=== PATIENT | male | born 1945 | race Hispanic/Latino ===

== ENCOUNTER 2018-05-06 05:33 | Inpatient (IN) | payer MEDICARE, OTHER ==
--- NOTE | 2018-05-06 05:53 | ED PDOC ---
Arrival/HPI - History of Present Illness Narrative History of Present Illness (Text): PMH: hypertension, IDDM, TEZ, metabolic syndrome, CKD, left lower extremity DVT (2010), recently diagnosed with A-Fib (on Eliquis twice a day), prostate CA treated with radiation therapy PSH: none Meds: as per SEP Allx: NKDA <Wilmar Pollack - Last Filed: 05/06/18 06:17> - General Historian: Patient, Spouse - Critical Care Critical Care Minutes: Other (40 minutes) - History of Present Illness Narrative History of Present Illness (Text): 05/06/18 05:40 72 year old male, whose past medical history includes hypertension, IDDM, TEZ, metabolic syndrome, CKD, left lower extremity DVT (2010) and recently diagnosed with A-Fib (on Eliquis twice a day), presents to the emergency department accompanied by complaining of chest pain that began approximately 2 hours ago. The chest pain began after patient woke up and went to the bathroom. Patient describes the pain as a dull midsternal sensation, but non-radiating. As per patient's , patient had a recent stress test [address] Iglesias which was reportedly normal. He also reports having shortness of breath yesterday, but does not have any today. Patient denies any fever, chills, shortness of breath currently, nausea, vomiting, diarrhea, back pain, neck pain, headache, dizziness, or any other complaints. PMD: Dr. Dee Cooling Pipe Inspector: Dr. Iglesias Time/Duration: Other (2 hours) Symptom Onset: Sudden Symptom Course: Unchanged Activities at Onset: Light Context: Home <Jose Guadalupe Arguello - Last Filed: 05/06/18 06:29> - General Time Seen by Provider: 05/06/18 05:35 Past Medical History - Provider Review Nursing Documentation Reviewed: Yes <Jose Guadalupe Arguello - Last Filed: 05/06/18 06:29> Family/Social History - Physician Review Nursing Documentation Reviewed: Yes Family/Social History: No Known Family HX <Jose Guadalupe Arguello - Last Filed: 05/06/18 06:29> Allergies/Home Meds <Wilmar Pollack - Last Filed: 05/06/18 06:17> <Vic Arguelloyl - Last Filed: 05/06/18 06:29> Allergies/Adverse Reactions: Allergies No Known Allergies Allergy (Verified 05/06/18 05:37) Home Medications: Home Meds Medication Instructions Recorded Confirmed Apixaban [Eliquis] 5 mg PO BID 05/06/18 05/06/18 Fenofibrate Nanocrystallized 48 mg PO DAILY 05/06/18 05/06/18 [Tricor] Glimepiride [amaRYL] 4 mg PO DAILY 05/06/18 05/06/18 Insulin Detemir [Levemir] 26 units SQ DAILY 05/06/18 05/06/18 Liraglutide [Victoza 2-Brant] 1.8 mg SQ PRN PRN 05/06/18 05/06/18 Lisinopril/Hydrochlorothiazide 1 tab PO DAILY 05/06/18 05/06/18 [Lisinopril-Hctz 10-12.5 mg Tab] Travoprost [Travatan Z] 1 drop OD DAILY 05/06/18 05/06/18 Review of Systems - Physician Review All systems were reviewed & negative as marked: Yes - Review of Systems Constitutional: absent: Fevers, Other (Chills) Respiratory: SOB (yesterday) Cardiovascular: Chest Pain Gastrointestinal: absent: Diarrhea, Nausea, Vomiting Musculoskeletal: absent: Back Pain, Neck Pain Neurological: absent: Headache, Dizziness <Jose Guadalupe Arguello - Last Filed: 05/06/18 06:29> Physical Exam Vital Signs Temp Pulse Resp BP Pulse Ox 05/06/18 06:15 89 17 132/82 97 05/06/18 05:40 98.1 F 85 24 122/75 99 <Wilmar Pollack - Last Filed: 05/06/18 06:17> Vital Signs Reviewed: Yes Temperature: Afebrile Blood Pressure: Normal Pulse: Regular Respiratory Rate: Normal Appearance: Positive for: Well-Appearing, Non-Toxic, Comfortable Pain Distress: None Mental Status: Positive for: Alert and Oriented X 3 - Systems Exam Head: Present: Atraumatic, Normocephalic Pupils: Present: PERRL Extroacular Muscles: Present: EOMI Conjunctiva: Present: Normal Mouth: Present: Moist Mucous Membranes Neck: Present: Normal Range of Motion Respiratory/Chest: Present: Clear to Auscultation, Good Air Exchange. No: Respiratory Distress, Accessory Muscle Use Cardiovascular: Present: Regular Rate and Rhythm, Normal S1, S2. No: Murmurs Abdomen: No: Tenderness, Distention, Peritoneal Signs Back: Present: Normal Inspection Upper Extremity: Present: Normal Inspection. No: Cyanosis, Edema Lower Extremity: Present: Normal Inspection. No: Edema Neurological: Present: GCS=15, CN II-XII Intact, Speech Normal Skin: Present: Warm, Dry, Normal Color. No: Rashes Psychiatric: Present: Alert, Oriented x 3, Normal Insight, Normal Concentration <Jose Guadalupe Arguello - Last Filed: 05/06/18 06:29> Medical Decision Making - RAD Interpretation Radiology Orders: 05/06/18 05:39 CHEST PORTABLE [RAD] Stat - Medication Orders Current Medication Orders: Discontinued Medications Heparin Sodium (Porcine) (Heparin) 5,000 units IVP STAT STA; Protocol Stop: 05/06/18 05:48 Last Admin: 05/06/18 05:48 Dose: 5,000 units IVP Administration Document 05/06/18 05:48 CNR (Rec: 05/06/18 05:51 CNR [id number]) Charges for Administration # of IVP Administrations 1 Ticagrelor (Brilinta) 180 mg PO STAT STA Stop: 05/06/18 05:48 Last Admin: 05/06/18 05:48 Dose: 180 mg <Wilmar Pollack - Last Filed: 05/06/18 06:17> ED Course and Treatment: 05/06/18 05:48 Impression: 72 year old male presents complaining of chest pain that began approximately 2 hours prior to arrival. Plan: -- Labs -- EKG -- Chest X-ray -- Brilinta, Heparin -- Urinalysis -- Reassess and disposition Progress Notes: 05/06/18 05:[address] elevations noted on EKG. Patient states he took his morning dose of Eliquis. 05/06/18 05:45. Case discussed with Dr. Pearson(interventional cardiology) Card Search Engine Optimization Manager who is aware and agrees with the plan. He will take patient to manufacturing lab technician. He requests Brilinta, Heparin and aspirin to be given. Patient is adamantly refusing aspirin. 05/06/18 05:55 Case discussed with certified ophthalmic medical technician and Dr. Frost(accident investigator) who is aware and agrees with the plan. Accepts patient into hospitalist service. - Critical Care Critical Care Minutes: Other (40 minutes) - RAD Interpretation Radiology Orders: 05/06/18 05:39 CHEST PORTABLE [RAD] Stat - EKG Interpretation EKG Interpretation (Text): 05/06/18 05:42 EKG shows NSR at [address] depression V2, V3, V4, and V5 with ST elevation on Lead ii, iii, and AVF. Interpreted by me. Interpreted by ED Physician: Yes Type: 12 lead EKG <Jose Guadalupe Arguello - Last Filed: 05/06/18 06:29> - Scribe Statement The provider has reviewed the documentation as recorded by the Kiersten Felix Provider Scribe Attestation: All medical record entries made by the Scribe were at my direction and personally dictated by me. I have reviewed the chart and agree that the record accurately reflects my personal performance of the history, physical exam, medical decision making, and the department course for this patient. I have also personally directed, reviewed, and agree with the discharge instructions and disposition. <Jose Guadalupe Arguello - Last Filed: 05/06/18 06:29> Disposition/Present on Arrival - Present on Arrival Any Indicators Present on Arrival: Yes History of DVT/PE: Yes Urinary Catheter: No History of Decub. Ulcer: No <Wilmar Pollack - Last Filed: 05/06/18 06:17> - Disposition Have Diagnosis and Disposition been Completed?: Yes Disposition Time: 06:27 Patient Plan: Admission, ICU, Transfer To <Jose Guadalupe Arguello - Last Filed: 05/06/18 06:29> - Disposition Diagnosis: STEMI (ST elevation myocardial infarction) Condition: CRITICAL Discharge Instructions (ExitCare): Heart Attack (DC) Forms: [employer] (Amharic)
[2018-05-06] MEDS ORDERED: Midazolam 2 MG/2 ML VIAL ONE (06:19)
[2018-05-06] MEDS ORDERED: Phenylephrine 10 mg/ml Inj ONE (06:19)
[2018-05-06] MEDS ORDERED: Iodixanol 320 MG/ML 200 ML BOTTLE IV ONE (06:21)
[2018-05-06] MEDS ORDERED: Nitroglycerin 50mg in D5W 0 MG/0 ML BOTTLE IV ONE (06:21)
[2018-05-06] MEDS ORDERED: Iodixanol 320 MG/ML 100 ML BOTTLE IV ONE ×2 (06:21→07:45)
[2018-05-06] MEDS ORDERED: Iohexol 350mgl/ml 50 ML ONE (06:21)
[2018-05-06] MEDS ORDERED: Lidocaine 2% PF (10 ml) Amp ONE (06:22)
[2018-05-06 06:42] LABS: BASO # 0.07 K/mm3 (0.0-2.0); EOS # 0.3 (0.0-0.7); EOS % 4.1 % (1.5-5.0); GRAN # 4.33 (1.4-6.5); HEMOGLOBIN 13.7 g/dL (14.0-18.0); LYMPH # 1.7 (1.2-3.4); LYMPH % 24.2 % (22.0-35.0); MEAN CELL VOLUME 89.9 fl (80.0-105.0); MEAN CORPUSCULAR HGB CONC 33.3 g/dl (31.0-37.0); MEAN PLATELET VOLUME 9.8 fl (7.0-11.0); MONO # 0.6 (0.1-0.6); MONO % 8.7 % (1.0-6.0); RBC 4.57 10^6/uL (3.5-6.1)
[2018-05-06 06:44] LABS: PARTIAL THROMBOPLASTIN TIME 31.2 Seconds (25.1-36.5)
[2018-05-06 06:46] LABS: ALB/GLOB RATIO 1.3 (1.1-1.8); ALBUMIN 4.1 g/dL (3.0-4.8); CALCIUM 9.5 mg/dL (8.4-10.5)
[2018-05-06] MEDS ORDERED: Eptifibatide 20 mg/10mL Inj IVP ONE (06:57)
--- NOTE | 2018-05-06 07:05 | CP.PCM.PN ---
Subjective - Date & Time of Evaluation Date of Evaluation: 05/06/18 Time of Evaluation: 07:05 - Subjective Subjective: CODE HEART NOTE: Patient walked in to the ER for chest pain that began while at rest with intermittent associated SOB. He described the pain as a dull, non-radiating, substernal chest pain that he rates as a "0/10" in intensity. He denies any alleviating or aggravating factors. He has a history of atrial fibrillation on eliquis, HTN, HLD and DM. EKG was done and showed NSR at [address] depression V2, V3, V4, and V5 with ST elevation on Lead ii, iii, and AVF. Code heart was called and Dr. Pearson notified. Patient was loaded with ASA, heparin and brilinta. Of note, patient took his eliquis this AM. Patient was upright and answering questions without any visible signs of distress. Patient was then transported to outside laborer without complications and handed off the Dr. [place]. Cruz Taylor PGY2 Objective - Vital Signs/Intake and Output Vital Signs (last 24 hours): Temp Pulse Resp BP Pulse Ox 98.1 F 95 H 16 132/82 97 05/06/18 05:40 05/06/18 06:21 05/06/18 06:21 05/06/18 06:21 05/06/18 06:21 - Labs Labs: 05/06/18 05:45 05/06/18 05:45 APTT 31.2 Seconds (25.1-36.5) 05/06/18 05:45
[2018-05-06 07:08] LABS: TROPONIN I 0.45 ng/mL
[2018-05-06] MEDS ORDERED: LIRAGLUTIDE 1.8 MG SQ PRN ×2 (08:19→17:40)
--- NOTE | 2018-05-06 08:48 | CARD ---
APPROVED REPORT Date of service: 05/06/2018 Procedure(s) performed: Left Heart Catheterization Left Ventriculogram PTCA with Stenting Circ and OM HISTORY : The patient is a 72 year-old male with a history of . INDICATION The indication(s) include : STEMI (>0 to less than or equal to 6 hours). CASE TECHNIQUE The patient was brought emergently to the Cardiac Catheterization Laboratory in a fasting state and was prepped and draped in a sterile manner. The right femoral groin was infiltrated with 2% Lidocaine subcutaneous anesthesia. A 6 Fr x 11 cm Lynn sheath was inserted using coronary diagnostic catheters. The left coronary system was accessed and visualized with a 6 Fr JL 4 catheter. The right coronary system was accessed and visualized with a 6 Fr JR 4 catheter. Left ventricular/Aortic Valve gradient assessed on pullback. Left ventriculogram was performed in ALBERTO projection. Pre-demployment femoral angiogram was performed . Closure device was deployed with a 6 Fr Angio-Seal without any complications. Hemostasis was obtained with manual pressure following sheath removal without any complications. The patient tolerated the procedure well and there were no complications associated with the procedure. Vessel Analysis The patient's coronary anatomy is right dominant. The left main coronary artery is a large size vessel . There is a 0% stenosis . The left main bifurcates to the left anterior descending and circumflex. The left anterior descending artery is a medium size vessel . There is a 50% stenosis in the proximal segmentin the mid segment. The first diagonal branch is a small size vessel . There is a 0% stenosis . The second diagonal branch is a small size vessel . There is a 70% stenosis in the mid segment. The circumflex artery is a large size vessel . There is a 50% stenosis in the proximal segment. There is 70% stenosis in the mid segment The first obtuse marginal branch is a medium size vessel . There is a 70% stenosis in the ostial segment. There is 90% stenosis in the mid segment and 60% stenosis in the distal segment. There was left to right collaterals noted. The right coronary artery is a medium size vessel . There is a 100% stenosis in the mid segment. Left Ventricle The left ventricle is normal in size with abnormal contractility. Ischemic cardiomyopathy. The left ventricular ejection fraction is estimated to be 45-50%. The left ventricular end diastolic pressure is 16 mmHg. There was no gradient across the aortic valve upon pullback. Severe inferior wall hypokinesis noted. Note LV gram was limited study. Will need echo for further LV function evaluation PCI Technique Lesion Anticoagulation was achieved with , IntegrilinHeparin. Percutaneous coronary intervention was performed on the first obtuse marginal branch segment. The lesion stenosis prior to intervention was 95% with ALFREDA 3 flow. A 6 Fr XB 3.5 Guide Catheter was used to engage the left ostium. A 0.014 x 180 cm Runthrough NS Interventional Guidewire was used to cross the lesion. BALLOON DILATION A Balloon catheter 2.5 x 12 mm Sprinter RX was inserted and inflated up to 12.00atm for 20seconds. STENT DEPLOYMENT A drug-eluting stent STENT RESOLUTE JOSLYN 2.5 X15 was inserted and inflated up to 12.00atm for 20seconds. POST STENT DEPLOYMENT BALLOON DILATION A Balloon catheter 3.0 x 12 mm Trek RX NC was inserted and inflated up to 6.00atm for 14seconds. Final angiography reveals 0 % stenosis with ALFREDA 3 flow. PCI Technique Lesion 2 Percutaneous Coronary Intervention was performed on the mid circumflex artery segment. The lesion stenosis prior to intervention was 70% with ALFREDA 3 flow. A 6 Fr Guide Liner Guide Catheter was used to engage the left ostium. A 0.014 x 180 cm [place] Interventional Guidewire was used to cross the lesion. BALLOON DILATION A Balloon catheter 2.5 x 12 mm Sprinter RX was inserted and inflated up to 12.00atm for 20seconds. STENT DEPLOYMENT A drug-eluting stent STENT RESOLUTE JOSLYN 3.0 X 15 was inserted and inflated up to 12.00atm for 20seconds. POST STENT DEPLOYMENT BALLOON DILATION A Balloon catheter 3.0 x 12 mm Trek RX NC was inserted and inflated up to 12.00atm for 15seconds. Final angiography reveals 0 % stenosis with ALFREDA 3 flow. Conclusion Multivessel CAD as described above s/p PCI SADI to mid circumflex and mid marginal branch. Mild ischemic cardiomyopathy with LVEF of 45-50%. Recommendations Aggressive Medical Therapy Aspirin 81mg daily for 1 month and stop Plavix 75mg qd for atleast 1 year Eliquis 5mg bid. Thank you for allowing me to participate in the care of your patient.
[2018-05-06 09:40] LABS: HEMOGLOBIN 12.5 g/dL (14.0-18.0); MEAN CORPUSCULAR HEMOGLOBIN 29.3 pg (25.0-35.0); MEAN PLATELET VOLUME 9.7 fl (7.0-11.0); RBC 4.26 10^6/uL (3.5-6.1); WHITE BLOOD COUNT 7.4 10^3/uL (4.5-11.0)
[2018-05-06] MEDS ORDERED: TRAVOPROST OD SCH (10:00)
[2018-05-06] MEDS ORDERED: Insulin Detemir 100 units/ml Vial (Levemir) SC SCH (10:00)
--- NOTE | 2018-05-06 10:01 | CARD ---
APPROVED REPORT Date of service: 05/06/2018 EKG Measurement Heart [id number] <Conclusion> Atrial flutter with variable AV block PRWP IMI, age unknown STTW changes c/w ischemia
--- NOTE | 2018-05-06 10:04 | CARD ---
APPROVED REPORT Date of service: 05/06/2018 EKG Measurement Heart [id number] <Conclusion> Normal sinus rhythm, new PRWP Inferior infarct, age undetermined Improved repolarization
--- NOTE | 2018-05-06 10:08 | RAD ---
Date of service: 05/06/2018 HISTORY: chest pain COMPARISON: No prior. FINDINGS: LUNGS: The lungs are well inflated and clear. PLEURA: No pleural effusions or pneumothorax. CARDIOVASCULAR: The heart is normal in size. Atherosclerotic aortic arch calcifications are present. OSSEOUS STRUCTURES: Within normal limits for the patient's age. VISUALIZED UPPER ABDOMEN: Normal. OTHER FINDINGS: None. IMPRESSION: No active pulmonary disease.
[2018-05-06] MEDS: Sodium Chloride 0.9% 1,000 ML IV SCH (10:30)
--- NOTE | 2018-05-06 11:51 | CON ---
DATE: 05/06/2018 REQUESTING PHYSICIAN: Dr. Sauceda. CHIEF COMPLAINT: The patient presented with shortness of breath and chest pain. HISTORY OF PRESENT ILLNESS: Mr. Swift is a 72-year-old mildly obese male with a history of of hypertension, diabetes, obstructive sleep apnea, metabolic syndrome, chronic kidney disease, lower extremity DVT back in 2010 and recently diagnosed with atrial fibrillation, is on Eliquis twice a day. The patient had a stress test approximately 2 weeks ago that was negative, but complains of shortness of breath and chest pain this morning, came to the emergency room and it was noted that he was having of code heart. The patient went to electroplating laborer and at this time, he is in the ICU, hemodynamically stable, awake and alert with no chest pain. No shortness of breath. No cough. No wheezing. No fever, chills, nausea or vomiting. PAST MEDICAL HISTORY: As above. ALLERGIES: HE HAS NO KNOWN ALLERGIES. CURRENT MEDICATIONS: His current medications can be evaluated as per the nurse's intake form. SOCIAL HISTORY: No history of smoking or EtOH abuse. FAMILY HISTORY: Noncontributory. REVIEW OF SYSTEMS: CONSTITUTIONAL: Negative. HEENT: All negative. CARDIOVASCULAR: The patient did have the chest pain. RESPIRATORY: He has some shortness of breath. GASTROINTESTINAL: All negative. : All negative. MUSCULOSKELETAL: All negative. NEUROPSYCHIATRIC: All negative. HEMATOLOGY: All negative. IMMUNOLOGIC: All negative. INTEGUMENTARY: All negative. PHYSICAL EXAMINATION: VITAL SIGNS: Note that his temperature is 98.1, his pulse is 68, respirations of 24 and BP is 131/74. SKIN: Warm and dry. HEAD: Atraumatic, normocephalic. Eyes reactive to light. Ear, nose and throat seemed to be within normal limits. NECK: Supple. No JVD. No thyroid enlargement or lymph nodes. HEART: Has regular rate and rhythm. Normal S1, S2. LUNGS: Reveal good breath sounds bilaterally. ABDOMEN: Soft, nontender. Normal bowel sounds. No organomegaly noted. GENITALIA AND RECTAL: Deferred. MUSCULOSKELETAL: No joint deformities. EXTREMITIES: Reveal trace lower extremity edema. NEUROLOGIC: He seemed to be grossly intact. LABORATORY DATA: As far as his laboratories are concerned, his white count is 7.4, hemoglobin is 12.5, hematocrit 37.9 with platelets of 111,000. His sodium is 141, potassium 4.6, chloride 107, CO2 of 16 with BUN of 25, creatinine of 1.6 and a glucose of 107. The patient's BNP is 538. His troponin is 0.45. The patient's chest x-ray reveals no active pulmonary disease. IMPRESSION: This patient had code heart and went to the electroplating laborer. The patient had stents placed in the mid and distal circumflex. The patient has myocardial infarction with history of diabetes, chronic kidney disease, obstructive sleep apnea, atrial fibrillation, obesity and past history of prostate cancer as well as left lower extremity deep venous thrombosis. PLAN: As far as our plan, we will continue with O2 via nasal cannula, continue to monitor closely. The patient is on his Colace, Ecotrin, Levemir, and Lipitor, Plavix, IV fluids, his Tricor as well as Travatan Z and as per Cardiology will be started on Eliquis later today. We will continue to treat aggressively along with the other consultants and the primary care doctor and follow instructions from Cardiology. Gee Correa MD
[2018-05-06 13:53] VITALS: BMI 36.5
--- NOTE | 2018-05-06 14:32 | CP.PCM.HP ---
<Zeke Monique - Last Filed: 05/06/18 15:45> History of Present Illness - History of Present Illness History of Present Illness: Zeke Monique PGY1 History and Physical for Dr Sauceda Pt is a 72yo male with a PMH of HTN, IDDM, TEZ, metabolic syndrome, CKD, left lower extremity DVT (2010) and recently diagnosed with A-Fib (on Eliquis twice a day), who presents to the ED accompanied by complaining of chest pain that began approximately 2 hours prior to arrival. Pt states the pain began shortly after he woke up and went to use the restroom. Pt states the painis dull, midsternal but does not radiate. Pt reports that he had a stress test two weeks ago which was normal with Dr Iglesias. Upon arrival pt was found to be having a STEMI and a Code Heart was called, pt was taken to the cytogenetics laboratory manager and 2 SADI were placed in the circumflex artery. He also reports having shortness of breath yes terday, but does not have any today. A 12 point ROS was obtained and added to the HPI where appropriate. PMH: hypertension, IDDM, TEZ, metabolic syndrome, CKD, left lower extremity DVT (2010) and recently diagnosed with A-Fib (on Eliquis twice a day) PSH: cardiac stent placement SH: former smoker, alcohol seldom, denies drugs Allergies: NKDA Home meds: eliquis, travoprost, tricor, levemir, victoza, lisinopril/HCTZ, glimepiride PMD: Dr. Dee Assistant Branch Operations Manager: Dr. Iglesias Present on Admission - Present on Admission Any Indicators Present on Admission: No Review of Systems - Review of Systems Review of Systems: a 12 point ROS was obtained and added to the HPI where appropriate Past Patient History - Past Social History Smoking Status: Former Smoker - CARDIAC Hx Atrial Fibrillation: Yes Hx Hypertension: Yes - PULMONARY Hx Sleep Apnea: Yes - NEUROLOGICAL Hx Neurological Disorder: No - HEENT Hx HEENT Problems: Yes Hx Glaucoma: Yes - RENAL Hx Chronic Kidney Disease: No - ENDOCRINE/METABOLIC Hx Endocrine Disorders: Yes Hx Diabetes Mellitus Type 1: Yes - HEMATOLOGICAL/ONCOLOGICAL Hx Blood Disorders: No - INTEGUMENTARY Hx Dermatological Problems: No - MUSCULOSKELETAL/RHEUMATOLOGICAL Hx Musculoskeletal Disorders: No - GASTROINTESTINAL Hx Gastrointestinal Disorders: No - GENITOURINARY/GYNECOLOGICAL Hx Genitourinary Disorders: No - PSYCHIATRIC Hx Psychophysiologic Disorder: No Hx Substance Use: No - SURGICAL HISTORY Hx Surgeries: Yes Hx Cataract Extraction: Yes (x2) Meds Allergies/Adverse Reactions: Allergies Allergy/AdvReac Type Severity Reaction Status Date / Time No Known Allergies Allergy Verified 05/06/18 05:37 Physical Exam - Constitutional Appears: Non-toxic, No Acute Distress - Head Exam Head Exam: ATRAUMATIC, NORMAL INSPECTION, NORMOCEPHALIC - Eye Exam Eye Exam: EOMI - ENT Exam ENT Exam: Mucous Membranes Moist - Respiratory Exam Respiratory Exam: Clear to Auscultation Bilateral, NORMAL BREATHING PATTERN. absent: Accessory Muscle Use, Wheezes, Respiratory Distress - Cardiovascular Exam Cardiovascular Exam: RRR, +S1, +S2. absent: Diastolic murmur, Systolic Murmur - GI/Abdominal Exam GI & Abdominal Exam: Normal Bowel Sounds, Soft. absent: Distended, Tenderness - Extremities Exam Extremities exam: Positive for: full ROM, normal inspection, pedal pulses present. Negative for: calf tenderness, pedal edema - Neurological Exam Neurological exam: Alert, Oriented x3 - Psychiatric Exam Psychiatric exam: Normal Affect, Normal Mood - Skin Skin Exam: Dry, Normal Color, Warm Results - Vital Signs Recent Vital Signs: Last Vital Signs Temp 98.1 F 05/06/18 05:40 Pulse 68 05/06/18 13:10 Resp 15 05/06/18 13:10 BP 149/59 L 05/06/18 13:00 Pulse Ox 100 05/06/18 13:10 - Labs Result Diagrams: 05/06/18 09:35 05/06/18 05:45 Labs: Laboratory Results - last 24 hr 05/06/18 05/06/18 05/06/18 05:45 05:45 05:45 WBC 7.0 RBC 4.57 Hgb 13.7 L Hct 41.1 L MCV 89.9 MCH 30.0 MCHC 33.3 RDW 14.0 Plt Count 186 MPV 9.8 Gran % 62.0 Lymph % (Auto) 24.2 [place] % (Auto) 8.7 H Eos % (Auto) 4.1 Baso % (Auto) 1.0 Gran # 4.33 Lymph # (Auto) 1.7 [place] # (Auto) 0.6 Eos # (Auto) 0.3 Baso # (Auto) 0.07 APTT 31.2 D-Dimer, Quantitative 205 Sodium 141 Potassium 4.6 Chloride 107 Carbon Dioxide 26 Anion Gap 12 BUN 25 H Creatinine 1.6 H Est GFR ( Amer) 52 Est GFR (Non-Af Amer) 43 Random Glucose 107 Calcium 9.5 Magnesium 2.0 Total Bilirubin 0.6 AST 34 ALT 33 Alkaline Phosphatase 53 Troponin I 0.45 H* NT-Pro-B Natriuret Pep 538 H Total Protein 7.4 Albumin 4.1 Globulin 3.3 Albumin/Globulin Ratio 1.3 05/06/18 09:35 WBC 7.4 RBC 4.26 Hgb 12.5 L Hct 37.9 L MCV 89.0 MCH 29.3 MCHC 33.0 RDW 14.0 Plt Count 111 L MPV 9.7 Gran % Lymph % (Auto) [place] % (Auto) Eos % (Auto) Baso % (Auto) Gran # Lymph # (Auto) [place] # (Auto) Eos # (Auto) Baso # (Auto) APTT D-Dimer, Quantitative Sodium Potassium Chloride Carbon Dioxide Anion Gap BUN Creatinine Est GFR ( Amer) Est GFR (Non-Af Amer) Random Glucose Calcium Magnesium Total Bilirubin AST ALT Alkaline Phosphatase Troponin I NT-Pro-B Natriuret Pep Total Protein Albumin Globulin Albumin/Globulin Ratio Assessment & Plan - Assessment and Plan (Free Text) Assessment: Pt is a 72yo male with a PMH of HTN, IDDM, TEZ, metabolic syndrome, CKD, left lower extremity DVT (2010) and recently diagnosed with A-Fib (on Eliquis twice a day), who presents to the ED accompanied by complaining of chest pain that began approximately 2 hours prior to arrival. Plan: STEMI - EKG shows a flutter and ST T wave abnormalities - code heart was called, pt was taken to cytogenetics laboratory manager - 2 drug eluting stents were placed in the circumflex artery, placed by Dr Pearson - troponin 0.45 - BNP 538 - ASA, plavix - will restart eliquis per cardio recs - cardio consulted, Dr Maximo FOWLER on CKD - BUN 25 - Cr 1.6 - will continue to monitor, pt received contrast during cath - IVF NS@100 Atrial Fibrillation - will restart Eliquis HTN - continue to monitor HLD - fenofibrate - atorvastatin IDDM - glimepiride - levemire - victoza Ppx - heparin Pt seen, examined, assessment and plan discussed with Dr Sohail Monique PGY1 - Date & Time Date: 05/06/18 Time: 06:00 <Alma Sauceda - Last Filed: 05/06/18 16:16> Results - Vital Signs Recent Vital Signs: Last Vital Signs Temp 98.1 F 05/06/18 05:40 Pulse 68 05/06/18 13:10 Resp 15 05/06/18 13:10 BP 149/59 L 05/06/18 13:00 Pulse Ox 100 05/06/18 13:10 - Labs Result Diagrams: 05/06/18 09:35 05/06/18 05:45 Labs: Laboratory Results - last 24 hr 05/06/18 05/06/18 05/06/18 05:45 05:45 05:45 WBC 7.0 RBC 4.57 Hgb 13.7 L Hct 41.1 L MCV 89.9 MCH 30.0 MCHC 33.3 RDW 14.0 Plt Count 186 MPV 9.8 Gran % 62.0 Lymph % (Auto) 24.2 [place] % (Auto) 8.7 H Eos % (Auto) 4.1 Baso % (Auto) 1.0 Gran # 4.33 Lymph # (Auto) 1.7 [place] # (Auto) 0.6 Eos # (Auto) 0.3 Baso # (Auto) 0.07 APTT 31.2 D-Dimer, Quantitative 205 Sodium 141 Potassium 4.6 Chloride 107 Carbon Dioxide 26 Anion Gap 12 BUN 25 H Creatinine 1.6 H Est GFR ( Amer) 52 Est GFR (Non-Af Amer) 43 Random Glucose 107 Calcium 9.5 Magnesium 2.0 Total Bilirubin 0.6 AST 34 ALT 33 Alkaline Phosphatase 53 Troponin I 0.45 H* NT-Pro-B Natriuret Pep 538 H Total Protein 7.4 Albumin 4.1 Globulin 3.3 Albumin/Globulin Ratio 1.3 05/06/18 09:35 WBC 7.4 RBC 4.26 Hgb 12.5 L Hct 37.9 L MCV 89.0 MCH 29.3 MCHC 33.0 RDW 14.0 Plt Count 111 L MPV 9.7 Gran % Lymph % (Auto) [place] % (Auto) Eos % (Auto) Baso % (Auto) Gran # Lymph # (Auto) [place] # (Auto) Eos # (Auto) Baso # (Auto) APTT D-Dimer, Quantitative Sodium Potassium Chloride Carbon Dioxide Anion Gap BUN Creatinine Est GFR ( Amer) Est GFR (Non-Af Amer) Random Glucose Calcium Magnesium Total Bilirubin AST ALT Alkaline Phosphatase Troponin I NT-Pro-B Natriuret Pep Total Protein Albumin Globulin Albumin/Globulin Ratio Attending/Attestation - Attestation I have personally seen and examined this patient.: Yes I have fully participated in the care of the patient.: Yes I have reviewed all pertinent clinical information: Yes Notes (Text): 05/06/18 16:11 72 year old male with past medical history of hypertension, diabetes, CKD, left lower extremiy DVT and recently diagnoses afib on eliquis who presented with complaint of chest pain. He was found to have STEMI and went to the cytogenetics laboratory manager with 2 SADI placement in circumflex artery. Continue with aspirin, plavix and lipitor. Resume eliquis if okay with cardiology. Continue with ivf for mild acute on chronic kidney disease. Hold HCTZ and lisinopril for now until renal function improves. Although he reports recent negative stress test and echoc ardiogram, repeat echocardiogram was ordered by cardiology post STEMI. Alma Sauceda MD Hospitalist.
[2018-05-06] MEDS: Insulin Lispro (humaLOG) LOW Coverage SC SCH ×2 (17:22→21:24)
[2018-05-06] MEDS ORDERED: SIMBRINZA OPTH OU SCH ×2 (18:00→18:08)
[2018-05-06] MEDS: Insulin Detemir 100 units/ml Vial (Levemir) SC SCH (21:24)
[2018-05-06] MEDS: SIMBRINZA OPTH OU SCH (22:00)
[2018-05-07] MEDS: Insulin Lispro (humaLOG) LOW Coverage SC SCH ×4 (07:30→21:26)
[2018-05-07 08:48] LABS: BLOOD UREA NITROGEN 15 mg/dL (7-21); CALCIUM 9.1 mg/dL (8.4-10.5); GFR NON-AFRICAN AMERICAN 54
--- NOTE | 2018-05-07 09:04 | CP.PCM.PN ---
Subjective - Date & Time of Evaluation Date of Evaluation: 05/07/18 Time of Evaluation: 07:00 - Subjective Subjective: Stable in CCU s/p acute ND/PCI yesterday AM. No CP or SOB. V/S noted. RSR PE: Lungs: clear Cor.: S1S2 Abd.: soft Ext.: no edema Neuro.: alert I/O= 3300/3500 Labs noted: Trop 0.45, Cr.= 1.3 ECG 05/06 RSR, IMI Objective - Vital Signs/Intake and Output Vital Signs (last 24 hours): Temp Pulse Resp BP Pulse Ox 97.5 F L 78 30 H 123/65 98 05/07/18 08:00 05/07/18 08:40 05/07/18 08:40 05/07/18 08:00 05/07/18 08:40 Intake and Output: 05/07/18 05/07/18 06:59 18:59 Intake Total 1400 Output Total 1600 Balance -200 - Medications Medications: Current Medications Acetaminophen (Tylenol 325mg Tab) 650 mg PO Q6H PRN PRN Reason: Pain, Mild (1-3) Last Admin: 05/06/18 11:53 Dose: 650 mg Apixaban (Eliquis) 5 mg PO BID [facility]; Protocol Last Admin: 05/06/18 17:58 Dose: 5 mg Aspirin (Ecotrin) 81 mg PO DAILY [facility] Atorvastatin Calcium (Lipitor) 80 mg PO DIN [facility] Last Admin: 05/06/18 17:27 Dose: Not Given Clopidogrel Bisulfate (Plavix) 75 mg PO DAILY [facility] Docusate Sodium (Colace) 100 mg PO BID [facility] Last Admin: 05/06/18 17:58 Dose: 100 mg Fenofibrate (Tricor) 48 mg PO DAILY [facility] Last Admin: 05/06/18 11:07 Dose: Not Given Glimepiride (Amaryl) 4 mg PO DAILY [facility] Last Admin: 05/06/18 11:07 Dose: Not Given Home Med (Home Med) 1 unit OU Q12 [facility] Last Admin: 05/06/18 22:00 Dose: Not Given Sodium Chloride (Sodium Chloride 0.9%) 1,000 mls @ 100 mls/hr IV .Q10H [facility] Last Admin: 05/06/18 10:30 Dose: 100 mls/hr Insulin Detemir (Levemir) 26 unit SC HS [facility] Last Admin: 05/06/18 21:24 Dose: 26 units Insulin Human Lispro (Humalog Low) 0 units SC [facility]; Protocol Last Admin: 05/06/18 21:24 Dose: Not Given Home Med ( Liraglutide [Victoza 2-Brant] 1.8 Mg) 1.8 mg SQ DAILY [facility] - Labs Labs: 05/06/18 09:35 05/07/18 06:50 APTT 31.2 Seconds (25.1-36.5) 05/06/18 05:45 Assessment and Plan - Assessment and Plan (Free Text) Assessment: Chest Pain/Acute IMI/ PCI C.A/OM with residual occluded RCA PAF/Flutter Diabetes HBP HLD TEZ Metabolic Syndrome CKD DVT, remote Former Smoker Plan: As per Dr. Pearson. Cath report noted. ASA/Plavix Metoprolol 25 BID Eliquis OOB to chair Tel bed Check Echo Monitor: labs, I/O, trops., BSs, renal fx., sats., etc.
[2018-05-07] MEDS: SIMBRINZA OPTH OU SCH ×2 (09:31→21:11)
[2018-05-07 09:35] LABS: TROPONIN I 4.38 ng/mL
[2018-05-07] MEDS ORDERED: LIRAGLUTIDE 1.8 MG SQ SCH ×2 (10:00→22:00)
[2018-05-07 10:10] LABS: HEMOGLOBIN 12.6 g/dL (14.0-18.0); MEAN CELL VOLUME 89.3 fl (80.0-105.0); MEAN CORPUSCULAR HEMOGLOBIN 29.4 pg (25.0-35.0); MEAN PLATELET VOLUME 10.1 fl (7.0-11.0); RBC 4.28 10^6/uL (3.5-6.1); RED CELL DISTRIBUTION WIDTH 13.9 % (11.5-14.5); WHITE BLOOD COUNT 6.6 10^3/uL (4.5-11.0)
[2018-05-07 10:28] LABS: ALB/GLOB RATIO 1.2 (1.1-1.8); ALBUMIN 3.8 g/dL (3.0-4.8); ALT/SGPT 31 U/L (7-56); AST/SGOT 49 U/L (17-59); BLOOD UREA NITROGEN 16 mg/dL (7-21); GFR NON-AFRICAN AMERICAN 54
[2018-05-07] MEDS: Sodium Chloride 0.9% 1,000 ML IV SCH (10:48)
[2018-05-07 11:24] VITALS: O2SAT 96
--- NOTE | 2018-05-07 13:21 | CP.PCM.PN ---
Subjective - Date & Time of Evaluation Date of Evaluation: 05/07/18 Time of Evaluation: 08:00 - Subjective Subjective: Patient seen and examined at bedside, reports no SOB, CP. Objective - Vital Signs/Intake and Output Vital Signs (last 24 hours): Temp Pulse Resp BP Pulse Ox 97.5 F L 77 26 H 127/65 96 05/07/18 08:00 05/07/18 11:10 05/07/18 11:10 05/07/18 11:04 05/07/18 11:10 Intake and Output: 05/07/18 05/07/18 06:59 18:59 Intake Total 1400 Output Total 1600 Balance -200 - Medications Medications: Current Medications Acetaminophen (Tylenol 325mg Tab) 650 mg PO Q6H PRN PRN Reason: Pain, Mild (1-3) Last Admin: 05/06/18 11:53 Dose: 650 mg Apixaban (Eliquis) 5 mg PO BID [facility]; Protocol Last Admin: 05/07/18 09:13 Dose: 5 mg Aspirin (Ecotrin) 81 mg PO DAILY [facility] Last Admin: 05/07/18 09:13 Dose: 81 mg Atorvastatin Calcium (Lipitor) 80 mg PO DIN [facility] Last Admin: 05/06/18 17:27 Dose: Not Given Clopidogrel Bisulfate (Plavix) 75 mg PO DAILY [facility] Last Admin: 05/07/18 09:12 Dose: 75 mg Docusate Sodium (Colace) 100 mg PO BID [facility] Last Admin: 05/07/18 09:12 Dose: 100 mg Fenofibrate (Tricor) 48 mg PO DAILY [facility] Last Admin: 05/07/18 10:48 Dose: 48 mg Home Med (Home Med) 1 unit OU Q12 [facility] Last Admin: 05/07/18 09:31 Dose: 1 unit Sodium Chloride (Sodium Chloride 0.9%) 1,000 mls @ 100 mls/hr IV .Q10H [facility] Last Admin: 05/07/18 10:48 Dose: 100 mls/hr Insulin Detemir (Levemir) 26 unit SC HS [facility] Last Admin: 05/06/18 21:24 Dose: 26 units Insulin Human Lispro (Humalog Low) 0 units SC ACHS [facility]; Protocol Last Admin: 05/07/18 07:30 Dose: Not Given Lisinopril (Zestril) 2.5 mg PO DAILY [facility] Home Med ( Liraglutide [Victoza 2-Brant] 1.8 Mg) 1.8 mg SQ HS [facility] - Labs Labs: 05/07/18 09:50 05/07/18 09:50 APTT 31.2 Seconds (25.1-36.5) 05/06/18 05:45 - Constitutional Appears: Non-toxic, No Acute Distress - Head Exam Head Exam: NORMAL INSPECTION - Eye Exam Eye Exam: Normal appearance - ENT Exam ENT Exam: Mucous Membranes Moist - Neck Exam Neck Exam: Full ROM - Respiratory Exam Respiratory Exam: Clear to Ausculation Bilateral, NORMAL BREATHING PATTERN - Cardiovascular Exam Cardiovascular Exam: REGULAR RHYTHM, +S1, +S2 - GI/Abdominal Exam GI & Abdominal Exam: Soft, Normal Bowel Sounds - Extremities Exam Extremities Exam: Normal Inspection - Neurological Exam Neurological Exam: Alert, Awake, Oriented x3 Assessment and Plan - Assessment and Plan (Free Text) Assessment: Pt is a 72yo male with a PMHx of HTN, IDDM, TEZ, metabolic syndrome, CKD, left lower extremity DVT (2010) and recently diagnosed with A-Fib (on Eliquis twice a day) admitted with STEMI s/p SADI to LCx Currently afebrile, BP stable, comfortable in NAD STEMI CAD TEZ IDDM CKD Hx DVT Recommend: - supp o2 as needed, goal sat 90%, IS, duonebs PRN - NO ID issues - BP control - FS control - CHeck HgbA1C, TSH - cont with ASA, Plavix, Statin, BB - Eliquis, renally dosed - GI ppx - DVT ppx - ECHO - Transfer to telemetry
--- NOTE | 2018-05-07 19:19 | CP.PCM.PN ---
<Zeke Monique - Last Filed: 05/07/18 20:08> Subjective - Date & Time of Evaluation Date of Evaluation: 05/07/18 Time of Evaluation: 07:00 - Subjective Subjective: Pt seen and examined this morning in the ICU. Pt denies chest pain, SOB Objective - Vital Signs/Intake and Output Vital Signs (last 24 hours): Temp Pulse Resp BP Pulse Ox 98.8 F 79 26 H 141/70 96 05/07/18 16:00 05/07/18 18:00 05/07/18 11:10 05/07/18 17:26 05/07/18 11:10 Intake and Output: 05/07/18 05/08/18 18:59 06:59 Intake Total 1600 Output Total 1200 Balance 400 - Medications Medications: Current Medications Acetaminophen (Tylenol 325mg Tab) 650 mg PO Q6H PRN PRN Reason: Pain, Mild (1-3) Last Admin: 05/06/18 11:53 Dose: 650 mg Apixaban (Eliquis) 5 mg PO BID [facility]; Protocol Last Admin: 05/07/18 17:26 Dose: 5 mg Aspirin (Ecotrin) 81 mg PO DAILY [facility] Last Admin: 05/07/18 09:13 Dose: 81 mg Clopidogrel Bisulfate (Plavix) 75 mg PO DAILY [facility] Last Admin: 05/07/18 09:12 Dose: 75 mg Fenofibrate (Tricor) 48 mg PO DAILY [facility] Last Admin: 05/07/18 10:48 Dose: 48 mg Home Med (Home Med) 1 unit OU Q12 [facility] Last Admin: 05/07/18 09:31 Dose: 1 unit Insulin Detemir (Levemir) 26 unit SC HS [facility] Last Admin: 05/06/18 21:24 Dose: 26 units Insulin Human Lispro (Humalog Low) 0 units SC ACHS [facility]; Protocol Last Admin: 05/07/18 17:27 Dose: Not Given Lisinopril (Zestril) 2.5 mg PO DAILY [facility] Last Admin: 05/07/18 17:26 Dose: 2.5 mg Home Med ( Liraglutide [Victoza 2-Brant] 1.8 Mg) 1.8 mg SQ HS [facility] - Labs Labs: 05/07/18 09:50 05/07/18 09:50 APTT 31.2 Seconds (25.1-36.5) 05/06/18 05:45 - Constitutional Appears: No Acute Distress - Head Exam Head Exam: ATRAUMATIC, NORMAL INSPECTION, NORMOCEPHALIC - Eye Exam Eye Exam: EOMI - ENT Exam ENT Exam: Mucous Membranes Moist - Neck Exam Neck Exam: Full ROM - Respiratory Exam Respiratory Exam: NORMAL BREATHING PATTERN. absent: Wheezes - Cardiovascular Exam Cardiovascular Exam: RRR, +S1, +S2. absent: Diastolic murmur, Murmur - GI/Abdominal Exam GI & Abdominal Exam: Soft, Normal Bowel Sounds - Extremities Exam Extremities Exam: Full ROM Additional comments: ecchymosis present on right thigh from cardiac cath - Neurological Exam Neurological Exam: Alert, Awake, Oriented x3 - Psychiatric Exam Psychiatric exam: Normal Affect, Normal Mood - Skin Skin Exam: Dry, Intact, Warm Assessment and Plan - Assessment and Plan (Free Text) Assessment: Pt is a 72 yo male with a PMH of HTN, IDDM, TEZ, metabolic syndrome, CKD, left lower extremity DVT (2010), former smoker, and recently diagnosed with A-Fib (on Eliquis twice a day), who presents to the ED accompanied by complaining of chest pain and SOB that began approximately 2 hours prior to arrival. Plan: Neuro - pt AOx3 - continue to monitor Cardio STEMI - EKG shows a flutter and ST T wave abnormalities - code heart was called, pt was taken to sleep lab technologist - 2 drug eluting stents were placed in the middle and distal circumflex artery, placed by Dr Pearson. - Trop 0.45, 4.38 - BNP 538 - ASA, plavix - continue eliquis per cardio recs - Metorprolol 25 BID per cardio - supplimental O2 PRN (mantain 02 90%) - cardio consulted, Dr Marsh, recs appreciated. - f/u echo Atrial Fibrillation - [id number] score 5 - Eliquis 5mg BID - Metoprolol 25 BID HTN - BP stable HLD - fenofibrate - atorvastatin Respiratory - continue to monitor GI - continue to monitor Nephro/ JANETH on CKD - Cr trending down to 1.3 from 1.6 - will continue to monitor, pt received contrast during cath - IVF NS@100 Endocrine IDDM - glimepiride - levemire - victoza - ISS ID - no signs of infection - no leukocytosis at this time - afebrile Pt seen, examined, assessment and plan discussed with Dr Azul Monique PGY1 <Chantelle Liang - Last Filed: 05/09/18 14:56> Objective - Vital Signs/Intake and Output Vital Signs (last 24 hours): Temp Pulse Resp BP Pulse Ox 98.4 F 99 H 20 140/61 96 05/08/18 04:00 05/08/18 10:45 05/08/18 04:00 05/08/18 10:45 05/08/18 00:00 - Labs Labs: 05/08/18 06:50 05/08/18 06:50 APTT 31.2 Seconds (25.1-36.5) 05/06/18 05:45 Attending/Attestation - Attestation I have personally seen and examined this patient.: Yes I have fully participated in the care of the patient.: Yes I have reviewed all pertinent clinical information, including history, physical exam and plan: Yes Notes (Text): 05/09/18 14:56 Medical record note made by the resident after discussion with my direction and input after the patient was personally seen and examined by me. I have reviewed the chart and agree that the record accurately reflects by personal performance of the history, physical exam, data review, and medical decision-making, in the course for the patient. I have also personally directed the plan of care.
[2018-05-07] MEDS: Insulin Detemir 100 units/ml Vial (Levemir) SC SCH (21:20)
[2018-05-08 03:15] VITALS: RESP 20
[2018-05-08] MEDS: Sodium Chloride 0.9% 1,000 ML IV SCH (04:15)
[2018-05-08 06:29] VITALS: TEMP 98.4
[2018-05-08 07:19] LABS: BASO # 0.03 K/mm3 (0.0-2.0); BASO % 0.5 % (0.0-3.0); EOS # 0.2 (0.0-0.7); EOS % 3.8 % (1.5-5.0); GRAN # 3.68 (1.4-6.5); GRAN % 67.2 % (50.0-68.0); HEMOGLOBIN 13.1 g/dL (14.0-18.0); LYMPH # 1.2 (1.2-3.4); LYMPH % 21.2 % (22.0-35.0); MEAN CELL VOLUME 88.9 fl (80.0-105.0); MEAN CORPUSCULAR HEMOGLOBIN 29.2 pg (25.0-35.0); MEAN CORPUSCULAR HGB CONC 32.8 g/dl (31.0-37.0); MEAN PLATELET VOLUME 9.9 fl (7.0-11.0); MONO # 0.4 (0.1-0.6); MONO % 7.3 % (1.0-6.0); RBC 4.49 10^6/uL (3.5-6.1); RED CELL DISTRIBUTION WIDTH 13.8 % (11.5-14.5); WHITE BLOOD COUNT 5.5 10^3/uL (4.5-11.0)
[2018-05-08] MEDS: Insulin Lispro (humaLOG) LOW Coverage SC SCH (07:30)
[2018-05-08 07:37] LABS: ALB/GLOB RATIO 1.2 (1.1-1.8); ALBUMIN 3.9 g/dL (3.0-4.8); ALT/SGPT 26 U/L (7-56); AST/SGOT 37 U/L (17-59); BLOOD UREA NITROGEN 17 mg/dL (7-21); CALCIUM 9.4 mg/dL (8.4-10.5); GFR NON-AFRICAN AMERICAN 50; TROPONIN I 1.71 ng/mL
--- NOTE | 2018-05-08 07:57 | CARD ---
APPROVED REPORT Date of service: 05/07/2018 EXAM: Two-dimensional and M-mode echocardiogram with Doppler and color Doppler. Other Information Quality : GoodRhythm : INDICATION Acute IMI, S/P PCI 2D DIMENSIONS Left Atrium (2D)3.9 (1.6-4.0cm)IVSd1.2 (0.7-1.1cm) LVDd4.8 (3.9-5.9cm)PWd1.2 (0.7-1.1cm) LVDs3.6 (2.5-4.0cm)FS (%) 26.9 % LVEF (%)51.0 (>50%) M-Mode DIMENSIONS Aortic Root3.60 (2.2-3.7cm)Aortic Cusp Exc.2.00 (1.5-2.0cm) Aortic Valve AoV Peak Yxckmlak655.0cm/s Mitral Valve MV E Nigwckwi60.5cm/sMV A Djgnsobr11.8cm/sE/A ratio0.8 TDI Lateral E' Peak V8.38cm/sMedial E' Peak V8.09cm/sE/Lateral E'8.8 E/Medial E'9.1 Pulmonary Valve PV Peak Flapumgf34.3cm/sPV Peak Grad.3mmHg Tricuspid Valve TR Peak Zgeixqxi299ia/sRAP [id number] Peak Gr.9mmHg [id number] LEFT VENTRICLE The left ventricle is normal size. There is normal left ventricular wall thickness. Left ventricle systolic function is mildly impaired. The Ejection Fraction is -50% There is mild inferior and apical hypokinesis present. RIGHT VENTRICLE The right ventricle is normal size. ATRIA The left atrium size is normal. The right atrium size is normal. The interatrial septum is intact with no evidence for an atrial septal defect. AORTIC VALVE The aortic valve is normal in structure. MITRAL VALVE The mitral valve is normal in structure. TRICUSPID VALVE The tricuspid valve is normal in structure. There is trace tricuspid regurgitation. PULMONIC VALVE The pulmonic valve is not well visualized. GREAT VESSELS The aortic root is normal in size. PERICARDIAL EFFUSION There is no pericardial effusion. <Conclusion> The left ventricle is normal size. There is normal left ventricular wall thickness. Left ventricle systolic function is mildly impaired. The Ejection Fraction is -50% There is mild inferior and apical hypokinesis present.
--- NOTE | 2018-05-08 08:09 | CP.PCM.PN ---
Subjective - Date & Time of Evaluation Date of Evaluation: 05/08/18 Time of Evaluation: 07:00 - Subjective Subjective: Stable in CCU. No CP or SOB. He feels OK V/S noted. RSR PE: Lungs: clear Cor.: S1S2 Abd.: soft Ext.: no edema Neuro.: alert I/O= Labs noted: CBC and BMP OK, trops 4.38 and 1.71 ECG 05/06 RSR, IMI Echo Mild LVD, EF ~ 50%, Mild inferior and apical HK. See report. Objective - Vital Signs/Intake and Output Vital Signs (last 24 hours): Temp Pulse Resp BP Pulse Ox 98.4 F 61 20 124/70 96 05/08/18 04:00 05/08/18 06:00 05/08/18 04:00 05/08/18 04:00 05/08/18 00:00 Intake and Output: 05/08/18 05/08/18 06:59 18:59 Intake Total 240 Output Total 1725 Balance -1485 - Medications Medications: Current Medications Acetaminophen (Tylenol 325mg Tab) 650 mg PO Q6H PRN PRN Reason: Pain, Mild (1-3) Last Admin: 05/06/18 11:53 Dose: 650 mg Apixaban (Eliquis) 5 mg PO BID [facility]; Protocol Last Admin: 05/07/18 17:26 Dose: 5 mg Aspirin (Ecotrin) 81 mg PO DAILY [facility] Last Admin: 05/07/18 09:13 Dose: 81 mg Clopidogrel Bisulfate (Plavix) 75 mg PO DAILY [facility] Last Admin: 05/07/18 09:12 Dose: 75 mg Fenofibrate (Tricor) 48 mg PO DAILY [facility] Last Admin: 05/07/18 10:48 Dose: 48 mg Home Med (Home Med) 1 unit OU Q12 [facility] Last Admin: 05/07/18 21:11 Dose: 1 unit Insulin Detemir (Levemir) 26 unit SC HS [facility] Last Admin: 05/07/18 21:20 Dose: 26 units Insulin Human Lispro (Humalog Low) 0 units SC ACHS [facility]; Protocol Last Admin: 05/07/18 21:26 Dose: Not Given Lisinopril (Zestril) 2.5 mg PO DAILY [facility] Last Admin: 05/07/18 17:26 Dose: 2.5 mg Home Med ( Liraglutide [Victoza 2-Brant] 1.8 Mg) 1.8 mg SQ HS [facility] Last Admin: 05/07/18 21:27 Dose: Not Given - Labs Labs: 05/08/18 06:50 05/08/18 06:50 APTT 31.2 Seconds (25.1-36.5) 05/06/18 05:45 Assessment and Plan - Assessment and Plan (Free Text) Assessment: Chest Pain/Acute IMI/ PCI C.A/OM with residual occluded RCA PAF/Flutter Diabetes HBP HLD TEZ Metabolic Syndrome CKD DVT, remote Former Smoker Plan: OOB and ambulate in CCU as beto. Plan D/C for later this AM Cardiac meds: ASA 81/day, Plavix 75/day, Metoprolol ER 25/day, Eliquis 5/BID, Lisinopril HCT as pre-admission Continue fenofibrate and diabetes meds. Will add statin as out-pt. Cardiology F/U in one week F/U Dr. Dee.
[2018-05-08] MEDS ORDERED: Metoprolol Succinate 25 mg XL Tab PO SCH (10:00)
[2018-05-08] MEDS: SIMBRINZA OPTH OU SCH (10:45)
[2018-05-08 10:48] VITALS: BP 140/61; PULSE 99
--- NOTE | 2018-05-08 14:16 | PQF ---
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 Please specify the disease stage ( includes probable or suspected) Such as: -- Chronic kidney disease Stage 1 -- Chronic kidney disease Stage 2 -- Chronic kidney disease Stage 3 -- Chronic kidney disease Stage 4 -- Chronic kidney disease Stage 5 -- Chronic kidney disease Stage 5, requiring dialysis -- End Stage Renal Disease -- Other, please specify Stages are defined by the [employer] as follows: CKD Stage I GFR >= 90 ml / min per 1.73 m2 and persistent albuminuria CKD Stage 2 GFR between 60 and 89 with persistent albuminuria CKD Stage 3 GFR between 30 and 59 CKD Stage 4 GFR between 15 and 29 CKD Stage 5 GFR between <15 or End Stage Renal Disease The patient's Clinical Indicators include: Documentation throughout medical record states patient has hx CKD. Noted to JANETH on CKD on admission. Please specify stage of CKD. Query created by: Faiza Spaulding on 05/08/2018 10:49 AM Electronically signed by: Chantelle Liang MD 05/08/2018 2:13 PM
--- NOTE | 2018-05-08 18:02 | CP.PCM.DIS ---
<Zeke Monique - Last Filed: 05/08/18 18:04> Provider - Provider Date of Admission: 05/06/18 05:50 Attending physician: Chantelle Liang MD Primary care physician: Damian Dee MD Time Spent in preparation of Discharge (in minutes): 45 Diagnosis - Discharge Diagnosis (1) NSTEMI (non-ST elevated myocardial infarction) Status: Acute Priority: High (2) Diabetes Status: Chronic Priority: High (3) Atrial fibrillation Status: Acute Priority: High (4) HLD (hyperlipidemia) Status: Chronic Priority: Medium (5) CKD (chronic kidney disease) Status: Chronic Priority: High (6) JANETH (acute kidney injury) Status: Acute Priority: High Hospital Course - Lab Results Lab Results: Micro Results 05/06/18 08:13 Naris MRSA Culture (Admit) - Final MRSA NOT DETECTED Most Recent Lab Values WBC 5.5 10^3/uL (4.5-11.0) 05/08/18 06:50 RBC 4.49 10^6/uL (3.5-6.1) 05/08/18 06:50 Hgb 13.1 g/dL (14.0-18.0) L 05/08/18 06:50 Hct 39.9 % (42.0-52.0) L 05/08/18 06:50 MCV 88.9 fl (80.0-105.0) 05/08/18 06:50 MCH 29.2 pg (25.0-35.0) 05/08/18 06:50 MCHC 32.8 g/dl (31.0-37.0) 05/08/18 06:50 RDW 13.8 % (11.5-14.5) 05/08/18 06:50 Plt Count 134 10^3/uL (120.0-450.0) 05/08/18 06:50 MPV 9.9 fl (7.0-11.0) 05/08/18 06:50 Gran % 67.2 % (50.0-68.0) 05/08/18 06:50 Lymph % (Auto) 21.2 % (22.0-35.0) L 05/08/18 06:50 [place] % (Auto) 7.3 % (1.0-6.0) H 05/08/18 06:50 Eos % (Auto) 3.8 % (1.5-5.0) 05/08/18 06:50 Baso % (Auto) 0.5 % (0.0-3.0) 05/08/18 06:50 Gran # 3.68 (1.4-6.5) 05/08/18 06:50 Lymph # (Auto) 1.2 (1.2-3.4) 05/08/18 06:50 [place] # (Auto) 0.4 (0.1-0.6) 05/08/18 06:50 Eos # (Auto) 0.2 (0.0-0.7) 05/08/18 06:50 Baso # (Auto) 0.03 K/mm3 (0.0-2.0) 05/08/18 06:50 APTT 31.2 Seconds (25.1-36.5) 05/06/18 05:45 D-Dimer, Quantitative 205 ng/mlDDU (0-243) 05/06/18 05:45 Sodium 141 mmol/L (132-148) 05/08/18 06:50 Potassium 4.2 mmol/L (3.6-5.0) 05/08/18 06:50 Chloride 108 mmol/L (98-107) H 05/08/18 06:50 Carbon Dioxide 26 mmol/L (21-33) 05/08/18 06:50 Anion Gap 12 (10-20) 05/08/18 06:50 BUN 17 mg/dL (7-21) 05/08/18 06:50 Creatinine 1.4 mg/dl (0.8-1.5) 05/08/18 06:50 Est GFR ( Amer) > 60 05/08/18 06:50 Est GFR (Non-Af Amer) 50 05/08/18 06:50 POC Glucose (mg/dL) 122 mg/dL (65-110) H 05/08/18 07:20 Random Glucose 137 mg/dL (70-110) H 05/08/18 06:50 Calcium 9.4 mg/dL (8.4-10.5) 05/08/18 06:50 Phosphorus 3.0 mg/dL (2.5-4.5) 05/07/18 09:50 Magnesium 2.0 mg/dL (1.7-2.2) 05/07/18 09:50 Total Bilirubin 0.5 mg/dL (0.2-1.3) 05/08/18 06:50 AST 37 U/L (17-59) 05/08/18 06:50 ALT 26 U/L (7-56) 05/08/18 06:50 Alkaline Phosphatase 54 U/L (38-126) 05/08/18 06:50 Troponin I 1.71 ng/mL H* D 05/08/18 06:50 NT-Pro-B Natriuret Pep 538 pg/mL (0-450) H 05/06/18 05:45 Total Protein 7.0 g/dL (5.8-8.3) 05/08/18 06:50 Albumin 3.9 g/dL (3.0-4.8) 05/08/18 06:50 Globulin 3.2 gm/dL 05/08/18 06:50 Albumin/Globulin Ratio 1.2 (1.1-1.8) 05/08/18 06:50 - Hospital Course Hospital Course: Pt is a 72yo male with a PMH of HTN, IDDM, TEZ, metabolic syndrome, CKD, left lower extremity DVT (2010) and recently diagnosed with A-Fib (on Eliquis twice a day), who presents to the ED accompanied by complaining of chest pain and SOB that began approximately 2 hours prior to arrival. Pt states the pain began shortly after he woke up and went to use the restroom. Pt states the pain is dull, midsternal but does not radiate. Pt reports that he had a stress test two weeks ago which was normal with Dr Iglesias. Upon arrival pt was found to be having a STEMI and a Code Heart was called. EKG showed atrial flutter with ST and T wave changes consistent with ischemia to the left circumflex artery. Pt was taken to the technical laboratory asst and 2 SADI were placed in the circumflex artery. Pt is a 72yo male with a PMH of HTN, IDDM, TEZ, metabolic syndrome, CKD, left lower extremity DVT (2010) and recently diagnosed with A-Fib on Eliquis who was admitted to the CCU s/p STEMI and cardiac cath where he had two drug eluding stents placed in the mid and distal circumflex artery via the right femoral artery. Trops were trended- initial trop was 0.45, s/p cardiac cath, trop was 4.38. Final trop prior to discharged showed down trending to 1.71. Pt was stable following the procedure, denied chest pain and SOB. Echo preformed s/p cardiac cath showed EF 51%, with mild inferior and apical hypokinesis. Patient was evaluated by cardiology, Dr. Marsh during admission. Pt was started on Asprin 81/day, metoprolol ER 25/day and atorvastatin 80/day. Eliquis 5/BID was continued for his Atrial fibrillation. Pt's home medication Lisinopril /HCTZ was discontinued due to the addition of Metoprolol. Pt should start Lisinopril 5/daily. Pt's BP is well controlled upon discharge. Pt was able to ambulate out of bed the chair without SOB or chest pain. Catheter site in right groin is clean with mild ecchymosis and no signs of infection. Pt was counseled on heart healthy diet for home and healthy lifestyle changes. Pt amenable to discharge at this time. Pt stable for discharge to home as per Dr. Liang. Pt should f/u with court monitor Dr. Person within one week following discharge from hospital for cardiac evaluation and medical management/ reconciliation. We recommend pt start a statin as an outpatient. Pt should f/u with PMD Dr. Dee within 3-5 days of discharge. Patient should return to the ER if he experiences chest pain, SOB, N/V. Pt should continue all medications as stated in discharge instructions. - Date & Time of H&P Date of H&P: 05/08/18 Time of H&P: 07:00 Discharge Exam - Head Exam Head Exam: ATRAUMATIC, NORMAL INSPECTION, NORMOCEPHALIC - Eye Exam Eye Exam: EOMI - ENT Exam ENT Exam: Mucous Membranes Moist - Respiratory Exam Respiratory Exam: NORMAL BREATHING PATTERN, UNREMARKABLE. absent: Wheezes, Respiratory Distress - Cardiovascular Exam Cardiovascular Exam: RRR, +S1, +S2. absent: Diastolic murmur, Systolic Murmur - GI/Abdominal Exam GI & Abdominal Exam: Normal Bowel Sounds, Unremarkable - Extremities Exam Extremities exam: full ROM, pedal pulses present - Neurological Exam Neurological exam: Alert, Oriented x3 - Psychiatric Exam Psychiatric exam: Normal Affect, Normal Mood - Skin Skin Exam: Dry, Intact, Warm Discharge Plan - Discharge Medications Prescriptions: RX: Apixaban [Eliquis] 5 mg PO BID #60 tab RX: Aspirin [Ecotrin] 81 mg PO DAILY #30 tabec RX: Clopidogrel [Plavix] 75 mg PO DAILY #30 tab RX: Fenofibrate Nanocrystallized [Tricor] 48 mg PO DAILY #30 tablet RX: Glimepiride [amaRYL] 4 mg PO DAILY #30 tab RX: Insulin Detemir [Levemir] 26 unit SC HS #1 bottle RX: Insulin Detemir [Levemir] 26 units SQ DAILY #1 vial RX: Liraglutide [Victoza 2-Brant] 1.8 mg SQ PRN PRN #1 pen.injctr PRN Reason: Other RX: Lisinopril [Zestril] 2.5 mg PO DAILY #30 tab RX: Metoprolol Succinate XL [Toprol XL] 25 mg PO BRK #30 tab RX: Travoprost [Travatan Z] 1 drop OD DAILY #1 bottle - Follow Up Plan Condition: CRITICAL Disposition: HOME/ ROUTINE Instructions: Heart Attack (DC), Myocardial Infarction (DC), Myocardial Infarction (GEN) Additional Instructions: 1. please follow up with your primary care physician within 1 week 2. please follow up with your court monitor within 1 week 3. you received a cardiac catheritization, during which a drug eluting stent was placed. you will need to take 2 medications for the next year: Aspirin 81mg and Plavix 75mg 4. please discontinue taking hydrochlorothiazide 5. if your symptoms return or worsen, please go to the nearest emergency department Referrals: Damian Dee MD [Primary Care Provider] - <Chantelle Liang - Last Filed: 05/09/18 14:56> Provider - Provider Date of Admission: 05/06/18 05:50 Attending physician: Chantelle Liang MD Primary care physician: Damian Dee MD Hospital Course - Lab Results Lab Results: Micro Results 05/06/18 08:13 Naris MRSA Culture (Admit) - Final MRSA NOT DETECTED Most Recent Lab Values WBC 5.5 10^3/uL (4.5-11.0) 05/08/18 06:50 RBC 4.49 10^6/uL (3.5-6.1) 05/08/18 06:50 Hgb 13.1 g/dL (14.0-18.0) L 05/08/18 06:50 Hct 39.9 % (42.0-52.0) L 05/08/18 06:50 MCV 88.9 fl (80.0-105.0) 05/08/18 06:50 MCH 29.2 pg (25.0-35.0) 05/08/18 06:50 MCHC 32.8 g/dl (31.0-37.0) 05/08/18 06:50 RDW 13.8 % (11.5-14.5) 05/08/18 06:50 Plt Count 134 10^3/uL (120.0-450.0) 05/08/18 06:50 MPV 9.9 fl (7.0-11.0) 05/08/18 06:50 Gran % 67.2 % (50.0-68.0) 05/08/18 06:50 Lymph % (Auto) 21.2 % (22.0-35.0) L 05/08/18 06:50 [place] % (Auto) 7.3 % (1.0-6.0) H 05/08/18 06:50 Eos % (Auto) 3.8 % (1.5-5.0) 05/08/18 06:50 Baso % (Auto) 0.5 % (0.0-3.0) 05/08/18 06:50 Gran # 3.68 (1.4-6.5) 05/08/18 06:50 Lymph # (Auto) 1.2 (1.2-3.4) 05/08/18 06:50 [place] # (Auto) 0.4 (0.1-0.6) 05/08/18 06:50 Eos # (Auto) 0.2 (0.0-0.7) 05/08/18 06:50 Baso # (Auto) 0.03 K/mm3 (0.0-2.0) 05/08/18 06:50 APTT 31.2 Seconds (25.1-36.5) 05/06/18 05:45 D-Dimer, Quantitative 205 ng/mlDDU (0-243) 05/06/18 05:45 Sodium 141 mmol/L (132-148) 05/08/18 06:50 Potassium 4.2 mmol/L (3.6-5.0) 05/08/18 06:50 Chloride 108 mmol/L (98-107) H 05/08/18 06:50 Carbon Dioxide 26 mmol/L (21-33) 05/08/18 06:50 Anion Gap 12 (10-20) 05/08/18 06:50 BUN 17 mg/dL (7-21) 05/08/18 06:50 Creatinine 1.4 mg/dl (0.8-1.5) 05/08/18 06:50 Est GFR ( Amer) > 60 05/08/18 06:50 Est GFR (Non-Af Amer) 50 05/08/18 06:50 POC Glucose (mg/dL) 225 mg/dL (65-110) H 05/08/18 11:23 Random Glucose 137 mg/dL (70-110) H 05/08/18 06:50 Calcium 9.4 mg/dL (8.4-10.5) 05/08/18 06:50 Phosphorus 3.0 mg/dL (2.5-4.5) 05/07/18 09:50 Magnesium 2.0 mg/dL (1.7-2.2) 05/07/18 09:50 Total Bilirubin 0.5 mg/dL (0.2-1.3) 05/08/18 06:50 AST 37 U/L (17-59) 05/08/18 06:50 ALT 26 U/L (7-56) 05/08/18 06:50 Alkaline Phosphatase 54 U/L (38-126) 05/08/18 06:50 Troponin I 1.71 ng/mL H* D 05/08/18 06:50 NT-Pro-B Natriuret Pep 538 pg/mL (0-450) H 05/06/18 05:45 Total Protein 7.0 g/dL (5.8-8.3) 05/08/18 06:50 Albumin 3.9 g/dL (3.0-4.8) 05/08/18 06:50 Globulin 3.2 gm/dL 05/08/18 06:50 Albumin/Globulin Ratio 1.2 (1.1-1.8) 05/08/18 06:50 Attending/Attestation - Attestation I have personally seen and examined this patient.: Yes I have fully participated in the care of the patient.: Yes I have reviewed all pertinent clinical information, including history, physical exam and plan: Yes Notes (Text): 05/09/18 14:49 Medical record note made by the resident after discussion with my direction and input after the patient was personally seen and examined by me. I have reviewed the chart and agree that the record accurately reflects by personal performance of the history, physical exam, data review, and medical decision-making, in the course for the patient. I have also personally directed the plan of care. 72 year old male with hypertension, afib and DVT history on eliquis with recent negative echo/stress test was admitted with STEMI, underwent cardiac cath ,underwent drug eluting Circumflex stent, Patient remain stable after the procedure.Echo showed EF 50%., Patient has been restarted on Apixiban.He is on ASA/Plavix/Metoprolol/Lisinopril and statin. Patient will be discharged home and will follow up with PCP and Cardiology. Management plan was discussed in detail with patient. Education was provided. 05/09/18 14:52
== END 2018-05-08 15:02 | disposition home or self-care (01) | DRG 247 ==
LOC: ED 05:33 → ERH 05:50 → CCU 08:15
PROVIDERS: ADMIT Internal Medicine; ATTEND Internal Medicine
PROC: 027135Z Dilation of Coronary Artery, Two Arteries with Two Drug-eluting Intraluminal Devices, Percutaneous Approach (ICD-10-PCS; principal; 2018-05-06)
PROC: 4A023N7 Measurement of Cardiac Sampling and Pressure, Left Heart, Percutaneous Approach (ICD-10-PCS; 2018-05-06)
PROC: B215YZZ Fluoroscopy of Left Heart using Other Contrast (ICD-10-PCS; 2018-05-06)
PROC: 3E033PZ Introduction of Platelet Inhibitor into Peripheral Vein, Percutaneous Approach (ICD-10-PCS; 2018-05-06)
PROC: 5A09357 Assistance with Respiratory Ventilation, Less than 24 Consecutive Hours, Continuous Positive Airway Pressure (ICD-10-PCS; 2018-05-06)
DX: I21.3 ST elevation (STEMI) myocardial infarction of unspecified site (principal); N17.9 Acute kidney failure, unspecified; I48.92 Unspecified atrial flutter; I25.10 Atherosclerotic heart disease of native coronary artery without angina pectoris; I12.9 Hypertensive chronic kidney disease with stage 1 through stage 4 chronic kidney disease, or unspecified chronic kidney disease; E11.22 Type 2 diabetes mellitus with diabetic chronic kidney disease; N18.3 Chronic kidney disease, stage 3 (moderate); E88.81 Metabolic syndrome and other insulin resistance; G47.33 Obstructive sleep apnea (adult) (pediatric); I48.0 Paroxysmal atrial fibrillation; I25.5 Ischemic cardiomyopathy; E78.5 Hyperlipidemia, unspecified; H40.9 Unspecified glaucoma; E66.9 Obesity, unspecified; Z68.36 Body mass index [BMI] 36.0-36.9, adult; Z87.891 Personal history of nicotine dependence; Z85.46 Personal history of malignant neoplasm of prostate; Z86.718 Personal history of other venous thrombosis and embolism; Z79.4 Long term (current) use of insulin; Z79.01 Long term (current) use of anticoagulants; Z92.3 Personal history of irradiation; Z79.82 Long term (current) use of aspirin

== ENCOUNTER 2018-11-13 06:09 | Day surgery (SDC) | payer MEDICARE, OTHER ==
[2018-11-09 16:32] VITALS: BMI 35.9
[2018-11-13] MEDS ORDERED: Iohexol 350mgl/ml 50 ML ONE (06:34)
[2018-11-13] MEDS ORDERED: Iodixanol 320 MG/ML 100 ML BOTTLE IV ONE (06:34)
[2018-11-13] MEDS ORDERED: Iodixanol 320 MG/ML 200 ML BOTTLE IV ONE (06:34)
[2018-11-13] MEDS ORDERED: Lidocaine PF 2% (5 ml) Inj (For Cardiac Arrhy) ONE (06:34)
[2018-11-13] MEDS ORDERED: Phenylephrine 10 mg/ml Inj ONE (06:34)
[2018-11-13] MEDS ORDERED: Nitroglycerin 50mg in D5W 0 MG/0 ML BOTTLE IV ONE (06:34)
[2018-11-13 07:38] VITALS: O2SAT 97
[2018-11-13] MEDS ORDERED: Midazolam 2 MG/2 ML VIAL ONE ×2 (07:39→07:47)
[2018-11-13] MEDS ORDERED: Sodium Chloride 0.9% 1,000 ML IV SCH (09:15)
--- NOTE | 2018-11-13 11:40 | CARD ---
APPROVED REPORT Date of service: 11/13/2018 EKG Measurement Heart [id number] <Conclusion> Normal sinus rhythm Inferior infarct, age undetermined Abnormal ECG
[2018-11-13 12:21] VITALS: PULSE 62; RESP 18; TEMP 97.4
--- NOTE | 2018-11-13 14:09 | CARDCATH ---
PROCEDURE DATE: 11/13/2018 PROCEDURES: 1. Selective left and right coronary angiography. 2. Left ventriculography. 3. Percutaneous coronary intervention of left circumflex artery with three drug-eluting stents. 4. Right femoral arteriography. 5. Attempted Angio-Seal deployment. HISTORY: This is a 73-year-old man with known coronary disease status post prior myocardial infarction in March of last year, who underwent emergency PCI of his left circumflex at that time. He has had recent exertional symptoms and a stress test showed evidence of a large inferolateral defect repeat catheterization was advised. INDICATION: Exertional angina, normal stress test status post prior PCI. FINDINGS: The patient was treated with IV conscious sedation for a total of 4 mg of Versed and 200 mg of fentanyl throughout the procedure which lasted from 07:30 until 08:50 a.m. The patient was under constant electrocardiographic and hemodynamic monitoring supervised by me. HEMODYNAMICS: The aortic pressure was 120/76 and left heart pressure of 120/16. CORONARY ANATOMY: 1. The left mainstem was mildly calcified. 2. The LAD was calcified proximally and had an irregular diffuse 50% stenosis throughout its proximal segment. The mid and distal vessel was a small to moderate size caliber with mild irregularities. The diagonal branch has had evidence of mild diffuse disease. 3. The left circumflex artery was calcified as well in the proximal midportion. The proximal segment had an irregular 40% lesion present. The previously placed stent in the midportion had a 99% in-stent restenosis of the mid body of the stent. This was on the bend of the vessel. 4. The distal circumflex had a patent stent present, however, there was diffuse area of 70% stenosis noted before the stent as well as 70% stenosis beyond the stent. 5. The right coronary artery was occluded in the midportion which is known to be chronic. Faint [id number] collaterals were noted. LEFT VENTRICULOGRAPHY: Left ventriculogram was performed with hand injection only and this revealed evidence of moderate posterior basal hypokinesis with an overall ejection fraction of 45%. There is no aortic valve gradient on the catheter pullback. CORONARY INTERVENTION: A total of 5000 units of intravenous heparin was given and ACT was greater than 300 seconds during the procedure. The lesion in the left circumflex artery was successfully crossed with the use of [place] wire. Following this, initial inflations were performed in the distal and mid circumflex utilizing a 2.5 x 12-mm balloon. The balloon was then removed and a 2.75 x 15 mm Resolute Jamie drug-eluting stent was advanced into the very distal segment of the vessel beyond the previously placed distal stent. This was inflated to 12 atmospheres for 45 seconds. The stent was then removed and attempts were made to advance a 2.75 x 18 mm Resolute Jamie drug-eluting stent into the more early distal segment of the vessel. The stent could not be advanced through the proximal segment of the vessel and was therefore withdrawn. A roma wire was utilized with the use of a run-through wire. Again, the stent could not advance adequately. Following this, a GuideLiner was advanced over the wire and the roma wire was withdrawn. Following this, the 2.75 x 18 mm Resolute stent was successfully advanced into the early distal segment, this was inflated to 14 atmospheres for 45 seconds. Following this, the stent balloon was removed and attempts were then made to advance a 3.5 x 8 mm Resolute Franklin stent into the midportion of the vessel. This was passed through the GuideLiner as well. This was somewhat difficult, but ultimately successful and the balloon was inflated to 12 atmospheres. As this was within the stent, the stent balloon was advanced distally and proximally and additional inflations performed to 12 atmospheres for 30 seconds each. The stent balloon was then removed and there appeared to be evidence of mild underdeployment of the stent distally. A 3.5 x 9 mm noncompliant balloon was then advanced into the mid circumflex artery with the stent in the midportion. This was inflated to 14 atmospheres for 1 minute. The balloon was removed as was the GuideLiner. There was evidence of no residual disease within the stented segment and the proximal disease remained unchanged approximately 40%. RIGHT FEMORAL ARTERIOGRAPHY: Right femoral arteriogram revealed no evidence of significant disease and appropriate liver arterial puncture. Attempts were then made to close the puncture site with an Angio-Seal device. The device, however, did not deploy adequately and appeared to malfunction with the device remaining within the delivery system. Manual pressure was then applied until adequate hemostasis was achieved. Distal pulses were intact. CONCLUSION: 1. Severe left circumflex artery in-stent restenosis as well as progressive disease in the circumflex vessel successfully treated with drug-eluting stents as described above. 2. Moderate RCA disease. 3. Occluded RCA. 4. Mildly reduced LV systolic function. RECOMMENDATIONS: Eliquis and Plavix therapy will continue as the patient has paroxysmal atrial fibrillation. Aspirin will be added for 30 days. The need for aggressive risk factor control was discussed with him. The potential need for coronary bypass surgery in the future was presented as well. Alexandro Iglesias MD
[2018-11-13 20:26] VITALS: BP 146/67
== END 2018-11-13 16:33 | disposition home or self-care (01) ==
LOC: CATH 06:09 → 2RSO 09:38 → CATH 16:33
PROVIDERS: ATTEND Internal Medicine Cardiovascular Disease
DX: I25.118 Atherosclerotic heart disease of native coronary artery with other forms of angina pectoris (principal); T82.858A Stenosis of other vascular prosthetic devices, implants and grafts, initial encounter; I10 Essential (primary) hypertension; I48.0 Paroxysmal atrial fibrillation; I25.2 Old myocardial infarction; R06.00 Dyspnea, unspecified; E11.9 Type 2 diabetes mellitus without complications; E66.9 Obesity, unspecified; N28.9 Disorder of kidney and ureter, unspecified; Z95.5 Presence of coronary angioplasty implant and graft; Z68.36 Body mass index [BMI] 36.0-36.9, adult
CPT/HCPCS: 36415; 82948; 85175; 86850; 86900; 93005; 93458; 99152; 99153; C1725 ×2; C1769 ×3; C1874 ×3; C1887 ×2; C2629; C9600; J1644 ×2; J2250; J3010; J7030; Q9966; Q9967 ×2